=== PATIENT | female | born 1980 | race African-American/Black ===

== ENCOUNTER 2016-10-12 21:46 | Emergency (ER) | payer OTHER ==
[2016-10-12] MEDS ORDERED: SODIUM CHLORIDE 1,000 ML IV STA (21:47)
[2016-10-12] MEDS ORDERED: METOCLOPRAMIDE HCL INJECTION 10 MG/2 ML VIAL IVPB ONE (21:47)
[2016-10-12] MEDS ORDERED: DEXAMETHASONE SOD PHOSPHATE 4 MG/1 ML VIAL IVPUSH ONE (21:48)
--- NOTE | 2016-10-12 21:49 | PDOC ---
History of Present Illness - History of Present Illness Initial Comments: 10/12/16 21:53 The patient is a 36 year old female with a past medical hx of migraines, and epilepsy as a child who presents to the ED via EMS complaining of a diffuse headache since this afternoon. The patient states her headache started off as dull and progressively got worse. She describes the headache as if someone is squeezing her head. She reports associated nausea and vomiting. She notes three episodes of vomiting. The patient reports she has had migraines in the past that usually go away with sleep. She states this headache did not go away and she has never had a headache like this in the past. She notes her headache is currently a 3/10 in severity. The patient states she has been sick for one week with a sore throat and congestion. The patient reports photophobia but denies any weakness, chest pain, SOB, fever, chills. <Vanessa Guzman - Last Filed: 10/12/16 21:52> <Dinesh Velasquez - Last Filed: 10/12/16 23:08> - General Chief Complaint: Pain, Acute Stated Complaint: HEADACHE Time Seen by Provider: 10/12/16 21:47 Past History <Vanessa Guzman - Last Filed: 10/12/16 21:52> <Dinesh Velasquez - Last Filed: 10/12/16 23:08> - Past Medical History Allergies/Adverse Reactions: Allergies Allergy/AdvReac Type Severity Reaction Status Date / Time diphenhydramine HCl Allergy Verified 10/12/16 21:47 [From Benadryl] Home Medications: Ambulatory Orders NK [No Known Home Medication] 10/12/16 Review of Systems - Review of Systems Able to Perform ROS?: Yes Comments:: 10/12/16 21:52 GENERAL/CONSTITUTIONAL: No: fever, chills HEAD, EYES, EARS, NOSE AND THROAT: +Photophobia. CARDIOVASCULAR: No: chest pain RESPIRATORY: No: shortness of breath GASTROINTESTINAL: +Nausea, vomiting. NEUROLOGIC:+Headache. No:weakness <Vanessa Guzman - Last Filed: 10/12/16 21:52> *Physical Exam - Physical Exam General Appearance: Yes: Nourished, Appropriately Dressed. No: Apparent Distress HEENT: positive: EOMI, FLORINDA, Normal ENT Inspection, Other (PHOTPHOBIA) Neck: positive: Supple. negative: Tender, Carotid bruit Respiratory/Chest: positive: Lungs Clear, Normal Breath Sounds. negative: Respiratory Distress Cardiovascular: positive: Regular Rhythm, Regular Rate Gastrointestinal/Abdominal: positive: Soft. negative: Tender Musculoskeletal: positive: Normal Inspection. negative: Vertebral Tenderness Integumentary: positive: Normal Color. negative: Rash Neurologic: positive: chairman and ceo II-XII NML intact, Fully Oriented, Alert, Normal Mood/ Affect, Normal Response, Motor Strength 5/5 <Dinesh Velasquez - Last Filed: 10/12/16 23:08> Progress Note - Progress Note Progress Note: HEAD ACHE REGLAN/NS/DEXA/REASSESS 11:05 PM FEELS BETTER WANTS TO GO HOME NEURO INTACT <Dinesh Velasquez - Last Filed: 10/12/16 23:08> *DC/Admit/Observation/Transfer - Attestations Scribe Attestion: 10/12/16 21:52 Documentation prepared by Vanessa Guzman, acting as medical imaging tech for Dinesh Velasquez MD/DO. <Vanessa Guzman - Last Filed: 10/12/16 21:52> <Dinesh Velasquez - Last Filed: 10/12/16 23:08> Diagnosis at time of Disposition: Headache Qualifiers: Headache type: unspecified Headache chronicity pattern: acute headache Intractability: not intractable Qualified Code(s): R51 - Headache - Discharge Dispostion Disposition: HOME Condition at time of disposition: Improved - Patient Instructions Additional Instructions: EXCEDRIN MIGRAINE AT FIRST SIGN OF HEAD ACHE PLENTY OF FLUIDS CALL YOUR DOCTOR IN AM RETURN TO ER IF WORSENING OR NEW SYMPTOMS
[2016-10-12 21:54] VITALS: BP 137/82; PULSE 84; TEMP 98; BMI 28.3
[2016-10-12] MEDS ORDERED: DEXAMETHASONE SOD PHOSPHATE 10 MG/1 ML VIAL ONE (22:03)
[2016-10-12] MEDS ORDERED: KETOROLAC TROMETHAMINE 30 MG/1 ML VIAL ONE (22:38)
[2016-10-12] MEDS ORDERED: KETOROLAC TROMETHAMINE 30 MG/1 ML VIAL IVPUSH ONE (22:41)
== END 2016-10-12 23:21 | disposition home or self-care (01) ==
LOC: FER 21:46
PROC: 3E033GC Introduction of Other Therapeutic Substance into Peripheral Vein, Percutaneous Approach (ICD-10-PCS; principal; 2016-10-12)
PROC: 3E0333Z Introduction of Anti-inflammatory into Peripheral Vein, Percutaneous Approach (ICD-10-PCS; 2016-10-12)
PROC: 3E0337Z Introduction of Electrolytic and Water Balance Substance into Peripheral Vein, Percutaneous Approach (ICD-10-PCS; 2016-10-12)
DX: R51 Headache (principal); G40.009 Localization-related (focal) (partial) idiopathic epilepsy and epileptic syndromes with seizures of localized onset, not intractable, without status epilepticus
CPT/HCPCS: 99281-25

== ENCOUNTER 2017-01-12 04:50 | Emergency (ER) | payer OTHER ==
[2017-01-12 05:12] VITALS: TEMP 98.1; BMI 68.5
--- NOTE | 2017-01-12 05:22 | PDOC ---
History of Present Illness - General Chief Complaint: Pain, Acute Stated Complaint: HEADACHE SINCE TUESDAY POST SPINAL TAP Time Seen by Provider: 01/12/17 04:52 - History of Present Illness Initial Comments: This 36-year-old woman with a recent history of headaches and a remote history of seizures presents headache after lumbar puncture. Patient was seen here with the severe headache in April of this year. She did well after fluids and analgesics with resolution of the headache. She saw her general doctor who referred her to Dr. Jonathan Lizama, neurologist at [facility]. Patient underwent LP by approximately 36 hours prior to presentation. Patient had a mild headache when she left the office a few hours later. Occipital headache worsened over the next 24 hours, worse when upright and better when supine. No nausea and vomiting reported. No pain with movement of her neck She has had some radiation of headache to the frontal area over the last few hours. She has not taken any medication for her headache yet,stating that she was told to avoid NSAID because of blood thinning possibilities. Patient states that her seizure history was in childhood and has not had any recent seizures. She is on no antiseizure medications Past History - Past Medical History Allergies/Adverse Reactions: Allergies Allergy/AdvReac Type Severity Reaction Status Date / Time diphenhydramine HCl Allergy Verified 01/12/17 04:52 [From Angelita] Home Medications: Ambulatory Orders Oxycodone HCl/Acetaminophen [Percocet 5-325 mg Tablet] 1 tab PO Q6H PRN #10 tablet MDD 3 doses 01/12/17 Seizures: Yes ( A CHILD) - Psycho/Social/Smoking Cessation Hx Anxiety: No Suicidal Ideation: No Smoking History: Never smoked Have you smoked in the past 12 months: No Information on smoking cessation initiated: No Hx Alcohol Use: No Drug/Substance Use Hx: No Substance Use Type: None Review of Systems - Review of Systems Able to Perform ROS?: Yes Comments:: 12 point review of systems is negative except for what is noted in the history of present illness *Physical Exam - Vital Signs Last Vital Signs Temp Pulse Resp BP Pulse Ox 98.1 F 78 16 124/60 98 01/12/17 04:53 01/12/17 04:53 01/12/17 04:53 01/12/17 04:53 01/12/17 04:53 - Physical Exam Comments: GENERAL: Adult female, lying supine, alert and oriented 3 in no acute distress HEAD: Normal with no signs of trauma. EYES: PERRLA, EOMI, sclera anicteric, conjunctiva clear. ENT: Ears normal, nares patent, oropharynx clear without exudates. Dry mucous membranes. NECK: Normal range of motion, supple without lymphadenopathy, JVD, or masses. LUNGS: Breath sounds equal, clear to auscultation bilaterally. No wheezes, and no crackles. HEART:Regular rate and rhythm, normal S1 and S2 without murmur, rub or gallop. ABDOMEN:.normal bowel sounds No guarding,tenderness or rebound.No masses No distention. EXTREMITIES: Normal range of motion, no edema. No clubbing or cyanosis. No erythema, or tenderness. NEUROLOGICAL: Cranial nerves II through XII grossly intact. Normal speech. No focal neurological deficits. MUSCULOSKELETAL: Back non-tender to palpation, no CVA tenderness SKIN: Warm, Dry, normal turgor, no rashes or lesions noted. Progress Note - Progress Note Progress Note: This 36-year-old woman presents with symptoms of post-lumbar puncture headache. No evidence of infectious complications: No fever/meningismus/local inflammation or edema at site of LP. Neurologic exam is intact without evidence of focal deficits. Patient given Percocet 5/325 by mouth Patient able to stand up and go to the restroom without significant difficulty, although she states that she has some residual pain with upright position. Case discussed with , neurologist who is covering for the patient's neurologist (). Symptoms and exam very consistent with early post-LP headache. Blood patch therapy would be considered only after several days of persistent pain. Patient should continue Tylenol/Percocet as needed for headache. Patient should follow-up with her neurologist and give a call in the office later this morning. Recommendations discussed with the patient. Prescription for small (#10) amount of Percocet 5/325 sent to the patient's pharmacy to be used as needed for severe headache. She should avoid upright position and strenuous activity for the next 1-2 days. She should call as recommended later on today. She should return to the emergency room if she has worsening symptoms. *DC/Admit/Observation/Transfer Diagnosis at time of Disposition: Post lumbar puncture headache - Discharge Dispostion Disposition: HOME Condition at time of disposition: Stable - Prescriptions Prescriptions: Oxycodone HCl/Acetaminophen [Percocet 5-325 mg Tablet] 1 tab PO Q6H PRN #10 tablet MDD 3 doses PRN Reason: Severe Pain - Referrals Referrals: Sheela Ha [Primary Care Provider] - Jonathan Lizama MD [Non Staff, Medical] - Call tomorrow - Patient Instructions Printed Discharge Instructions: DI for Post-Spinal Puncture Headache Additional Instructions: Tylenol as needed for mild to moderate headache Percocet 5/325 up to 3 times a day as needed for severe headache Call after 9 a.m. today and follow-up as scheduled Return to ER if you have vomiting/difficulty speaking/extremity weakness or fever
[2017-01-12] MEDS ORDERED: OXYCODONE/APAP 5/325MG COMBO TABLET PO ONE (05:42)
[2017-01-12] MEDS ORDERED: OXYCODONE/APAP 5/325MG COMBO TABLET ONE (05:45)
[2017-01-12 06:48] VITALS: BP 121/81; PULSE 72
[2017-01-12] MEDS ORDERED: ACETAMINOPHEN 325 MG TABLET (FP) ONE (06:57)
== END 2017-01-12 07:14 | disposition home or self-care (01) ==
LOC: FER 04:50
DX: G97.1 Other reaction to spinal and lumbar puncture (principal); R56.9 Unspecified convulsions
CPT/HCPCS: 99281-25